=== PATIENT | female | born 1965 | race Caucasian/White ===

== ENCOUNTER → 2023-11-07 14:03 | Outpatient (REF) | payer OTHER, SELFPAY | LOC: HWRAD 14:03 | PROVIDERS: ATTENDING PHYSICIAN Specialist; FAMILY PHYSICIAN Internal Medicine | DX: N20.0 Calculus of kidney (principal) | CPT/HCPCS: 74176 ==

== ENCOUNTER 2023-12-10 06:15 | Day surgery (SDC) | payer OTHER, SELFPAY ==
[2023-12-05 10:15] LABS: Hematocrit 42.7 % (37.0-47.0); Hemoglobin 14.4 g/dL (12.0-16.0); Mean Corp Hgb Conc. 33.7 g/dL (33.0-37.0); Mean Corpuscular Hgb 33.1 pg (27.0-31.0); Mean Corpuscular Volume 98.2 fL (81.0-99.0); Mean Platelet Volume 8.9 fL (7.4-10.4); Platelet Count 284 10^3/uL (130-400); Red Blood Cell Count 4.35 10^6/uL (4.20-5.40); Red Cell Dist. Width 12.8 % (11.5-14.5); White Blood Cell Count 15.2 10^3/uL (4.8-10.8)
[2023-12-05 10:23] LABS: INR 1.12; PT 14.4 Sec (11.4-14.6)
[2023-12-05 10:24] LABS: APTT 30.6 Sec (23.4-35.0)
[2023-12-05 10:27] LABS: Urine Albumin Trace (Neg - Trace); Urine Bilirubin Negative (Negative); Urine Character Clear (Clear); Urine Color Yellow; Urine Glucose Negative (Negative); Urine Ketone Negative (Negative); Urine Leukocyte 1+ (Negative); Urine Nitrite Negative (Negative); Urine Occult Blood 4+ (Negative); Urine Urobilinogen Negative (Neg - 1+)
[2023-12-05 10:41] LABS: Urine Squamous Cell 16-20 /LPF (Few)
[2023-12-05 10:42] LABS: Urine Urothelial Cell 0-2 /LPF (FEW)
[2023-12-05 10:43] LABS: Urine Bacteria Moderate (Negative); Urine Red Blood Cell >100 /HPF (0-2); Urine White Cell 21-25 /HPF (0-5)
[2023-12-05 11:14] LABS: Blood Urea Nitrogen 26 mg/dl (7-17); Carbon Dioxide 26 mmol/L (22-30); Chloride 104 mmol/L (98-107); Glucose 102 mg/dl (70-99); Potassium 4.1 mmol/L (3.5-5.1); Sodium 140 mmol/L (135-145); eGFR 57.88
--- NOTE | 2023-12-05 12:00 | PTCARENOTE ---
Elizabeth at ' office was notified of abnormal labs collected today: WBC 15.2; creatinine 1.1; eGFr 57.88 and the urinalysis.
[2023-12-05 12:52] VITALS: BMI 23.0
[2023-12-10] VITALS (8 sets, daily range): BP systolic 108–127; BP diastolic 58–85; BMI 23.0
[2023-12-10] MEDS: Pyridium 200 MG PO (06:18)
[2023-12-10] MEDS: NORMOSOL-R 1000 IV (06:37)
[2023-12-14 12:32] LABS: Stone Analysis Mass 21 mg
== END 2023-12-10 10:15 | disposition home or self-care (01) ==
LOC: SDS 06:15
PROVIDERS: ATTENDING PHYSICIAN Specialist; FAMILY PHYSICIAN Internal Medicine; OTHER PHYSICIAN Internal Medicine Hypertension Specialist
DX: N20.0 Calculus of kidney (principal)
CPT/HCPCS: 52356; 36415; 74018; 76000; 80048; 81003; 81015; 82365; 85027; 85610; 85730; 93005; C1894; C2617; J1580

== ENCOUNTER 2024-04-02 06:25 | Day surgery (SDC) | payer OTHER, SELFPAY ==
[2024-03-25 12:14] VITALS: BMI 21.8
[2024-03-25 14:05] LABS: Hematocrit 42.1 % (37.0-47.0); Hemoglobin 13.9 g/dL (12.0-16.0); Mean Corpuscular Hgb 33.1 pg (27.0-31.0); Mean Corpuscular Volume 100.2 fL (81.0-99.0); Mean Platelet Volume 9.6 fL (7.4-10.4); Platelet Count 265 10^3/uL (130-400); Red Cell Dist. Width 12.7 % (11.5-14.5); White Blood Cell Count 13.3 10^3/uL (4.8-10.8)
[2024-03-25 14:06] LABS: Urine Albumin Negative (Neg - Trace); Urine Bilirubin Negative (Negative); Urine Character Clear (Clear); Urine Color Yellow; Urine Glucose Negative (Negative); Urine Ketone Negative (Negative); Urine Leukocyte Negative (Negative); Urine Nitrite Negative (Negative); Urine Occult Blood 2+ (Negative); Urine Urobilinogen Negative (Neg - 1+)
[2024-03-25 14:17] LABS: Urine Urothelial Cell 0-2 /LPF (FEW)
[2024-03-25 14:18] LABS: Urine Bacteria Few (Negative)
[2024-03-25 14:30] LABS: Blood Urea Nitrogen 13 mg/dl (7-17); Carbon Dioxide 25 mmol/L (22-30); Chloride 109 mmol/L (98-107); Estimated Creatinine Clearance 58 ml/min; Glucose 111 mg/dl (70-99); Sodium 140 mmol/L (135-145); eGFR > 60.00
[2024-03-25 14:33] LABS: INR 1.24; PT 15.7 Sec (11.4-14.6)
[2024-03-25 14:34] LABS: APTT 31.6 Sec (23.4-35.0)
[2024-04-02] VITALS (7 sets, daily range): BP systolic 103–132; BP diastolic 56–93; BMI 21.8
[2024-04-02] MEDS: Pyridium 200 MG PO (08:20)
[2024-04-02] MEDS: NORMOSOL-R 1000 IV (08:20)
== END 2024-04-02 12:05 | disposition home or self-care (01) ==
LOC: SDS 06:25
PROVIDERS: ATTENDING PHYSICIAN Specialist; FAMILY PHYSICIAN Internal Medicine; OTHER PHYSICIAN Internal Medicine Hypertension Specialist
DX: N20.0 Calculus of kidney (principal)
CPT/HCPCS: 52356; 36415; 74018; 76000; 80048; 81003; 81015; 85027; 85610; 85730; C1894; C2617

== ENCOUNTER → 2024-09-09 11:48 | Outpatient (REF) | payer OTHER, SELFPAY | LOC: PAVMRI 11:48 | PROVIDERS: ATTENDING PHYSICIAN Orthopaedic Surgery; FAMILY PHYSICIAN Internal Medicine | DX: M25.511 Pain in right shoulder (principal); M19.011 Primary osteoarthritis, right shoulder | CPT/HCPCS: 73221 ==

== ENCOUNTER → 2024-10-09 11:07 | Outpatient (REF) | payer OTHER, SELFPAY | LOC: HWRAD 11:07 | PROVIDERS: ATTENDING PHYSICIAN Internal Medicine; FAMILY PHYSICIAN Internal Medicine; REFERRING PHYSICIAN Specialist | DX: N20.0 Calculus of kidney (principal) | CPT/HCPCS: 76775 ==

== ENCOUNTER → 2024-11-02 13:08 | Outpatient (REF) | payer OTHER, SELFPAY | LOC: HWCARD 13:08 | PROVIDERS: ATTENDING PHYSICIAN Specialist; FAMILY PHYSICIAN Internal Medicine | DX: Z01.818 Encounter for other preprocedural examination (principal) | CPT/HCPCS: 93005 ==

== ENCOUNTER 2024-11-24 06:13 | Day surgery (SDC) | payer OTHER, SELFPAY ==
[2024-11-24] VITALS (9 sets, daily range): BP systolic 107–143; BP diastolic 55–75; BMI 20.6
[2024-11-24] MEDS: TYLENOL 1000 MG PO (12:08)
[2024-11-24] MEDS: NORMOSOL-R/PLASMALYTE-A 1000 IV (12:15)
== END 2024-11-24 17:30 | disposition home or self-care (01) ==
LOC: SDS 06:13
PROVIDERS: ATTENDING PHYSICIAN Specialist
DX: M19.011 Primary osteoarthritis, right shoulder (principal); M75.111 Incomplete rotator cuff tear or rupture of right shoulder, not specified as traumatic
CPT/HCPCS: 29827; 29824

== ENCOUNTER → 2025-04-23 06:46 | Outpatient (REF) | payer OTHER, SELFPAY | LOC: MRI 06:46 | PROVIDERS: ATTENDING PHYSICIAN Orthopaedic Surgery; FAMILY PHYSICIAN Internal Medicine | DX: G57.01 Lesion of sciatic nerve, right lower limb (principal) | CPT/HCPCS: 73721 ==